=== PATIENT | female | born 1995 | race Caucasian/White ===

== ENCOUNTER 2017-10-10 11:44 | Emergency (ER) | payer SELFPAY ==
[2017-10-10] MEDS ORDERED: Acetaminophen 500 MG TAB ONE (12:54)
[2017-10-10] MEDS ORDERED: Dexamethasone 10 MG/ML VIAL ONE (12:54)
[2017-10-10] MEDS ORDERED: Ibuprofen 800 MG TAB ONE (12:54)
== END 2017-10-10 14:30 | disposition home or self-care (01) ==
LOC: ERS 11:44
DX: J45.901 Unspecified asthma with (acute) exacerbation (principal); J11.1 Influenza due to unidentified influenza virus with other respiratory manifestations
CPT/HCPCS: 96372; J1100

== ENCOUNTER 2018-01-04 12:00 | Emergency (ER) | payer SELFPAY, OTHER ==
[2018-01-04] MEDS ORDERED: predniSONE 20 MG TAB ONE (13:11)
== END 2018-01-04 13:20 | disposition home or self-care (01) ==
LOC: ERS 12:00
DX: J45.901 Unspecified asthma with (acute) exacerbation (principal); B34.9 Viral infection, unspecified
CPT/HCPCS: 99283; J7506